=== PATIENT | female | born 1945 | race Caucasian/White ===

== ENCOUNTER 2016-12-25 19:07 | Emergency (ER) | payer OTHER ==
[2016-12-25 19:17] VITALS: BP 158/79; PULSE 68; TEMP 98; BMI 36.6
[2016-12-25] MEDS ORDERED: KETOROLAC TROMETHAMINE 30 MG/1 ML VIAL IM ONE (19:26)
[2016-12-25] MEDS ORDERED: KETOROLAC TROMETHAMINE 30 MG/1 ML VIAL ONE (19:28)
--- NOTE | 2016-12-25 19:30 | PDOC ---
History of Present Illness <Vasyl Estes - Last Filed: 12/25/16 19:27> - General History Source: Patient, Family Exam Limitations: No Limitations - History of Present Illness Initial Comments: 12/25/16 19:33 The patient is a 71 year old female presenting with her , with a significant past medical history of dysphagia and UTI, who presents to the emergency department with left knee pain onset today. She notes that she was walking down the stairs when she heard a pop. She describes the pain as ranging from mild to moderate, without radiation. She notes that ambulating exacerbates the pain. The patient was not able to walk into the ED and was brought in via a wheelchair. She denies taking any antibiotics recently. The patient denies any kind of injuries. Allergies: None Past surgical history: Heel Surgery, abdominal surgery Social history: Occasional alcohol use. No tobacco or drug use reported PMD - Dr. Lily Blas <Bertram Fallon - Last Filed: 12/25/16 19:34> - General Chief Complaint: Pain, Acute Stated Complaint: LT KNEE PAIN Time Seen by Provider: 12/25/16 19:19 Past History - Past Medical History Anemia: No Asthma: No Cancer: No Cardiac Disorders: No CVA: No COPD: No CHF: No Dementia: No Diabetes: No GI Disorders: Yes (DYSPHAGIA) Disorders: Yes (UTI) HTN: No Hypercholesterolemia: No Liver Disease: No Seizures: No Thyroid Disease: No Other medical history: TREMORS - Surgical History Abdominal Surgery: Yes Appendectomy: No Cardiac Surgery: No Cholecystectomy: No Lung Surgery: No Neurologic Surgery: No Orthopedic Surgery: Yes (HEEL SURGERY) - Psycho/Social/Smoking Cessation Hx Anxiety: No Suicidal Ideation: No Smoking History: Never smoked Have you smoked in the past 12 months: No Hx Alcohol Use: Yes (nightly) Drug/Substance Use Hx: No Substance Use Type: Alcohol Hx Substance Use Treatment: No <Vasyl Estes - Last Filed: 12/25/16 19:27> <Bertram Fallon - Last Filed: 12/25/16 19:34> - Past Medical History Allergies/Adverse Reactions: Allergies Allergy/AdvReac Type Severity Reaction Status Date / Time No Known Allergies Allergy Verified 12/25/16 19:09 Home Medications: Ambulatory Orders Aspirin [Yves Chewable] 81 mg PO DAILY 10/17/15 Pantoprazole Sodium [Protonix] 40 mg PO DAILY 10/17/15 Propranolol HCl mg PO DAILY 12/25/16 Review of Systems - Review of Systems Able to Perform ROS?: Yes Musculoskeletal: Yes: Other (Left knee pain) All Other Systems: Reviewed and Negative <Bertram Fallon - Last Filed: 12/25/16 19:34> *Physical Exam - Vital Signs Last Vital Signs Temp Pulse Resp BP Pulse Ox 98 F 68 18 158/79 98 12/25/16 19:10 12/25/16 19:10 12/25/16 19:10 12/25/16 19:10 12/25/16 19:10 - Physical Exam General Appearance: Yes: Nourished, Appropriately Dressed. No: Apparent Distress Neck: positive: Supple. negative: Tender Respiratory/Chest: negative: Respiratory Distress Cardiovascular: positive: Regular Rhythm, Regular Rate Musculoskeletal: positive: Normal Inspection. negative: Vertebral Tenderness Extremity: positive: Normal Capillary Refill, Normal Inspection, Normal Range of Motion (TENDER LCL LT KNEE. NO EDEMA OR ERYTHEMA.) Integumentary: positive: Normal Color. negative: Swelling, Ecchymosis, Bruising Neurologic: positive: Fully Oriented, Alert, Normal Mood/Affect, Normal Response , Motor Strength 5/5 <Vasyl Estes - Last Filed: 12/25/16 19:27> - Vital Signs Last Vital Signs Temp Pulse Resp BP Pulse Ox 98 F 68 18 158/79 98 12/25/16 19:10 12/25/16 19:10 12/25/16 19:10 12/25/16 19:10 12/25/16 19:10 <Bertram Fallon - Last Filed: 12/25/16 19:34> ED Treatment Course - Medications Given in the ED: ED Medications Discontinued Medications Generic Name Dose Route Start Last Admin Trade Name Freq PRN Reason Stop Dose Admin Ketorolac Tromethamine 30 mg 12/25/16 19:26 12/25/16 19:30 Toradol Injection - IM 12/25/16 19:27 30 mg ONCE ONE Administration <Bertram Fallon - Last Filed: 12/25/16 19:34> *DC/Admit/Observation/Transfer <Vasyl Estes - Last Filed: 12/25/16 19:27> - Attestations Scribe Attestion: 12/25/16 19:33 Documentation prepared by Bertram Fallon, acting as medical service technician for Vasyl Estes MD <Bertram Fallon - Last Filed: 12/25/16 19:34> Diagnosis at time of Disposition: Knee pain Qualifiers: Laterality: left Chronicity: acute Qualified Code(s): M25.562 - Pain in left knee - Discharge Dispostion Condition at time of disposition: Stable - Referrals Referrals: Lily Blas [Primary Care Provider] - Jag Way MD [Staff Physician] - 2 Days - Patient Instructions Additional Instructions: ICE TO AREA ON AND OFF ELEVATION AMBULATION WITH KNEE IMMOBILIZER IBUPROFEN 600 MG 3 TIMES A DAY FOR [address] ON WEDNESDAY RETURN IF WORSENING OR NEW SYMPTOMS
== END 2016-12-25 19:52 | disposition home or self-care (01) ==
LOC: FER 19:07
PROC: 2W3MX1Z Immobilization of Left Lower Extremity using Splint (ICD-10-PCS; principal; 2016-12-25)
PROC: 3E0233Z Introduction of Anti-inflammatory into Muscle, Percutaneous Approach (ICD-10-PCS; 2016-12-25)
DX: M25.562 Pain in left knee (principal); R13.10 Dysphagia, unspecified; Z87.440 Personal history of urinary (tract) infections
CPT/HCPCS: 29515; 96372; 99283-25

== ENCOUNTER 2017-03-11 14:52 | Inpatient (IN) | payer OTHER ==
[2017-03-11] MEDS ORDERED: SODIUM CHLORIDE 1,000 ML IV STA (15:22)
--- NOTE | 2017-03-11 15:22 | PDOC ---
History of Present Illness - General History Source: Patient, Primary Care Provider (Dr. Lily Blas) Exam Limitations: No Limitations - History of Present Illness Initial Comments: 03/11/17 15:39 The patient is a 72-year-old woman, accompanied by her daughter, with a significant past medical history of hypertension and urinary tract infection who was advised to present to the emergency department by her PMD, Dr. Lily León office to rule out possible urosepsis. As per patient, she has been feeling progressively weak and fatigue over the past 3 days with associated chills and generalized body aches. She noted yesterday that her urine was brownish in appearance and foul smelling. She also notes that her urine is warmer than usual and she experiences urinary frequency. No dysuria or urinary hesitancy, hematuria. She also notes that she has been experiencing loose watery stools (reported twice/day). No fever. No generalized weakness, chest pain, shortness of breath, cough, nausea, vomiting, diarrhea, flank pain, vaginal discharge/vaginal bleeding. Allergies: No Known Drug Allergies Past Surgical History: Heel Spur Social History: Never smoked. No EtOH and recreational drug use. Primary Care Physician: Dr. Lily Blas <Tiffanie Raman - Last Filed: 03/11/17 16:40> <Cade Donaldson - Last Filed: 03/11/17 16:54> - General Chief Complaint: Urinary Problem Stated Complaint: LAB VARIANCE (PCP SENT) Time Seen by Provider: 03/11/17 15:21 Past History <Tiffanie Raman - Last Filed: 03/11/17 16:40> - Past Medical History Anemia: No Asthma: No Cancer: No Cardiac Disorders: No CVA: No COPD: No CHF: No Dementia: No Diabetes: No GI Disorders: Yes (DYSPHAGIA) Disorders: Yes (UTI) HTN: No Hypercholesterolemia: No Liver Disease: No Seizures: No Thyroid Disease: No - Surgical History Abdominal Surgery: Yes Appendectomy: No Cardiac Surgery: No Cholecystectomy: No Lung Surgery: No Neurologic Surgery: No Orthopedic Surgery: Yes (HEEL SURGERY) - Psycho/Social/Smoking Cessation Hx Anxiety: No Suicidal Ideation: No Smoking History: Never smoked Have you smoked in the past 12 months: No Hx Alcohol Use: No Drug/Substance Use Hx: No Substance Use Type: Alcohol Hx Substance Use Treatment: No <Cade Donaldson - Last Filed: 03/11/17 16:54> - Past Medical History Allergies/Adverse Reactions: Allergies Allergy/AdvReac Type Severity Reaction Status Date / Time No Known Allergies Allergy Verified 03/11/17 15:10 Home Medications: Ambulatory Orders Calcium (Oyster Shell) [Os-Mohinder 500Mg -] 500 mg PO DAILY 03/11/17 Cholecalciferol (Vitamin D3) [D-2000] 1,000 unit PO DAILY 03/11/17 Multivitamin [Poly-Vitamin] 1 each PO DAILY 03/11/17 [place]-3S/Dha/Epa/Fish Oil/D3 [Fish Oil Gummies] 1 each PO DAILY 03/11/17 Propranolol HCl [Inderal LA] 80 mg PO DAILY 03/11/17 Psyllium [Metamucil (Sugar-Free) -] 5.85 gm PO DAILY 03/11/17 Review of Systems - Review of Systems Able to Perform ROS?: Yes Comments:: 03/11/17 15:43 CONSTITUTIONAL: Present: Chills. Generalized Weakness. Absent: fever, diaphoresis, malaise, loss of appetite HEENT: Absent: rhinorrhea, nasal congestion, throat pain, throat swelling, difficulty swallowing, mouth swelling, ear pain, eye pain, visual Changes CARDIOVASCULAR: Absent: chest pain, syncope, palpitations, irregular heart rate , lightheadedness, peripheral edema RESPIRATORY: Absent: cough, shortness of breath, dyspnea with exertion, orthopnea, wheezing, stridor, hemoptysis GASTROINTESTINAL:Absent: abdominal pain, abdominal distension, nausea, vomiting , diarrhea, constipation, melena, hematochezia GENITOURINARY: Present: Urinary frequency. Foul smelling urine. Absent: dysuria , urgency, hesitancy, hematuria, flank pain, genital pain MUSCULOSKELETAL: Absent: myalgia, arthralgia, joint swelling SKIN: Absent: rash, itching, pallor HEMATOLOGIC/IMMUNOLOGIC: Absent: easy bleeding, easy bruising, lymphadenopathy, frequent infections ENDOCRINE:Absent: unexplained weight gain, unexplained weight loss, heat intolerance, cold intolerance NEUROLOGIC: Absent: headache, focal weakness or paresthesias, dizziness, unsteady gait, seizure, mental status changes, bladder or bowel incontinence PSYCHIATRIC: Absent: anxiety, depression, suicidal or homicidal ideation, hallucinations <Tiffanie Raman - Last Filed: 03/11/17 16:40> *Physical Exam - Vital Signs Last Vital Signs Temp Pulse Resp BP Pulse Ox 98.3 F 85 22 106/65 97 03/11/17 15:04 03/11/17 15:04 03/11/17 15:04 03/11/17 15:04 03/11/17 15:04 - Physical Exam Comments: 03/11/17 15:46 GENERAL: Well developed, well nourished. Awake and alert. No acute distress. HEENT: Normocephalic, atraumatic. PERRLA, EOMI. No conjunctival pallor. Sclera are non-icteric. Moist mucous membranes. Oropharynx is clear. NECK: Supple. Full ROM. No JVD. CARDIOVASCULAR: Regular rate and rhythm. No murmurs, rubs, or gallops. PULMONARY: No evidence of respiratory distress. Lungs clear to auscultation bilaterally. No wheezing, rales or rhonchi. ABDOMINAL: Soft. Non-tender. Non-distended. No rebound or guarding. No organomegaly. Normoactive bowel sounds. MUSCULOSKELETAL: Normal range of motion at all joints. No bony deformities or tenderness. No CVA tenderness. EXTREMITIES: No cyanosis. No clubbing. No edema. No calf tenderness. SKIN: Warm and dry. Normal capillary refill. No rashes. No jaundice. NEUROLOGICAL: Alert, awake, appropriate. Cranial nerves 2-12 intact. No deficits to light touch and temperature in face, upper extremities and lower extremities. No motor deficits in the in face, upper extremities and lower extremities. Normoreflexic in the upper and lower extremities. Normal speech. PSYCHIATRIC: Cooperative. Good eye contact. Appropriate mood and affect. <Tiffanie Raman - Last Filed: 03/11/17 16:40> - Vital Signs Last Vital Signs Temp Pulse Resp BP Pulse Ox 98.3 F 85 22 106/65 97 03/11/17 15:04 03/11/17 15:04 03/11/17 15:04 03/11/17 15:04 03/11/17 15:04 <Cade Donaldson - Last Filed: 03/11/17 16:54> Heart Score/ECG Review - ECG Intrepretation Comment:: 03/11/17 16:18 Normal sinus rhythm at 78, normal axis, normal intervals, flat T wave in lead AVL, V2-V3, no ST changes <Cade Donaldson - Last Filed: 03/11/17 16:54> ED Treatment Course - LABORATORY CBC & Chemistry Diagram: 03/11/17 15:49 03/11/17 15:49 - RADIOLOGY Radiograph Interpretation: 03/11/17 16:19 EXAM: RAD/CHEST X-RAY PORTABLE Interpreted by Dr. Jatin Jones IMPRESSION: Portable chest x-ray semierect. Since prior chest x-ray dated 2016, the cardiac silhouette remains borderline in size with unfolding of the aortic arch. The lung is clear. Mediastinum and visualized osseous structures appear intact <Tiffanie Raman - Last Filed: 03/11/17 16:40> - LABORATORY CBC & Chemistry Diagram: 03/11/17 15:49 03/11/17 15:49 <Cade Donaldson - Last Filed: 03/11/17 16:54> Medical Decision Making - Medical Decision Making 03/11/17 16:[address] Lily Blas. Immediate response. Case was discussed. <Tiffanie Raman - Last Filed: 03/11/17 16:40> - Medical Decision Making 03/11/17 15:30 The patient is well-appearing and in no acute distress Vitals noted She has 1 SIRS criteria, tachypnea According to her primary care physician, her heart rate was 110 in her office and she was having shaking chills Furthermore, her systolic blood pressure was 100, lower than her baseline of 150 She does have potential symptoms/signs of UTI Will initiate sepsis order set 03/11/17 15:55 Rectal temperature of 101.8 noted She has 2 SIRS criteria and clinical evidence of infection I suspect UTI/Pyelo She meets diagnostic criteria for sepsis Will administer Ceftriaxone 1gm and 1 L of NS Labs and UA pending 03/11/17 15:57 CXR emergency department interpretation: no acute cardiopulmonary disease 03/11/17 16:48 UA noted with evidence of UTI Lactic acid noted, within normal limits Chemistries, CBC Lab is aware that we are awaiting results 03/11/17 16:53 Chemistries noted CBC pending Clinical impression: Pyelonephritis Sepsis Case discussed with admitting physician who has assumed care and will follow all pending studies. <Cade Donaldson - Last Filed: 03/11/17 16:54> *DC/Admit/Observation/Transfer - Attestations Scribe Attestion: 03/11/17 15:47 Documentation prepared by Tiffanie Raman, acting as medical office supervisor for Cade Donaldson MD. <Tiffanie Raman - Last Filed: 03/11/17 16:40> - Discharge Dispostion Admit: Yes <Cade Donaldson - Last Filed: 03/11/17 16:54> Diagnosis at time of Disposition: Pyelonephritis, Sepsis - Referrals
[2017-03-11] MEDS ORDERED: ACETAMINOPHEN 325 MG TABLET (FP) PO ONE (15:56)
[2017-03-11] MEDS ORDERED: ACETAMINOPHEN 325 MG TABLET (FP) ONE (15:58)
[2017-03-11 16:45] LABS: MCH 30.7 pg (25.7-33.7); MEAN PLT VOLUME 10.5 fl (7.5-11.1); PLATELET COUNT 196 K/MM3 (134-434); RDW 12.7 % (11.6-15.6); WHITE BLOOD COUNT 23.5 K/mm3 (4.0-10.0)
[2017-03-11 16:46] LABS: URINE APPEARANCE SLCLOUDY; URINE BILIRUBIN NEGATIVE (NEGATIVE); URINE BLOOD NEGATIVE (NEGATIVE); URINE COLOR DKYELLOW; URINE GLUCOSE (UA) NEGATIVE (NEGATIVE); URINE KETONE TRACE (NEGATIVE); URINE LEUK ESTERASE 3+ (NEGATIVE); URINE NITRITE NEGATIVE (NEGATIVE); URINE PROTEIN 2+ (NEGATIVE); URINE UROBILINOGEN NEGATIVE E.U./dl (0.2-1.0)
[2017-03-11 16:47] LABS: ALBUMIN 3.4 g/dl (3.4-5.0); ANION GAP 13 (8-16); BILIRUBIN,TOTAL 1.2 mg/dL (0.2-1.0); CALCIUM 8.9 mg/dL (8.5-10.1); CO2 23 mmol/L (21-32); COCKROFT - GAULT 87.4565; CREATININE 0.9 mg/dL (0.55-1.02); GLUCOSE,RANDOM 116 mg/dL (74-106); SGOT/AST 22 U/L (15-37); SGPT/ALT 20 U/L (12-78)
[2017-03-11 16:51] LABS: ALK PHOS 91 U/L (45-117); TOT PROT 6.4 g/dl (6.4-8.2); TROPONIN I < 0.02 ng/ml (0.00-0.05)
[2017-03-11 17:15] LABS: INR 1.02 (0.82-1.09); PROTHROMBIN TIME (PATIENT) 11.2 SEC (9.98-11.88)
[2017-03-11 17:18] LABS: ACTIVATED PTT 22.8 SECONDS (26.9-34.4)
[2017-03-11 17:38] LABS: URINE BACTERIA RARE /hpf (NONE SEEN); URINE MUCUS RARE; URINE RBC 13 /hpf (0-3); URINE WBC 235 /hpf (3-5)
[2017-03-11 18:00] VITALS: BMI 39.1
[2017-03-11] MEDS ORDERED: CEFTRIAXONE 1 GM in DEXTROSE 5%-WATER - 50 ML IVPB ONE (19:08)
[2017-03-11] MEDS ORDERED: PT OWN MED DRAWER 7, Y5N ONE (19:54)
[2017-03-11] MEDS ORDERED: CEFTRIAXONE 50 ML IVPB ONE (20:00)
[2017-03-11] MEDS: SODIUM CHLORIDE 1,000 ML IV SCH (20:27)
[2017-03-11 20:42] LABS: PLATELET ESTIMATE ADEQUATE (NORMAL)
[2017-03-11] MEDS: HEPARIN NA (PORCINE) 5,000 UNITS/ML 1ML VIAL SQ SCH (22:06)
[2017-03-12] MEDS: ACETAMINOPHEN 325 MG TABLET (FP) PO PRN ×2 (06:20→18:57)
[2017-03-12 07:59] LABS: BASOPHIL 0.3 % (0-2.0); EOSINOPHIL 0.2 % (0-4.5); MCH 31.4 pg (25.7-33.7); MCHC 33.4 g/dl (32.0-36.0); MEAN PLT VOLUME 9.7 fl (7.5-11.1); NEUTROPHILS 82.9 % (42.8-82.8); PLATELET COUNT 178 K/MM3 (134-434); RDW 12.8 % (11.6-15.6); WHITE BLOOD COUNT 17.2 K/mm3 (4.0-10.0)
[2017-03-12 08:24] LABS: ALBUMIN 2.7 g/dl (3.4-5.0); ANION GAP 8 (8-16); CO2 25 mmol/L (21-32); GLUCOSE,RANDOM 105 mg/dL (74-106)
[2017-03-12 08:29] LABS: ALK PHOS 93 U/L (45-117); BILIRUBIN,TOTAL 0.6 mg/dL (0.2-1.0); CREATININE 0.9 mg/dL (0.55-1.02); SGOT/AST 23 U/L (15-37); SGPT/ALT 22 U/L (12-78); TOT PROT 5.5 g/dl (6.4-8.2)
--- NOTE | 2017-03-12 09:27 | PN ---
Progress Note (short form) - Note Progress Note: paitent with diarrhea. Fevers. BP better this morning. Called last night at time consult was delivered to expedite CT scan around 10pm. Patient is no at CT (9am). Will leave further note after CT reading is available
--- NOTE | 2017-03-12 09:48 | EKG ---
Test Reason : Blood Pressure : / mmHG Vent. Rate : 079 BPM Atrial Rate : 079 BPM P-R Int : 126 ms QRS Dur : 072 ms QT Int : 382 ms P-R-T Axes : 022 003 033 degrees QTc Int : 438 ms POOR DATA QUALITY, INTERPRETATION MAY BE ADVERSELY AFFECTED NORMAL SINUS RHYTHM NONSPECIFIC ST AND T WAVE ABNORMALITY ABNORMAL ECG NO PREVIOUS ECGS AVAILABLE Confirmed by AARON JOSEPH MD ([id number]) on 03/12/2017 9:48:13 AM Referred By: Confirmed By:AARON JOSEPH MD
[2017-03-12] MEDS ORDERED: CEFTRIAXONE 50 ML IVPB SCH (10:00)
[2017-03-12] MEDS: SODIUM CHLORIDE 1,000 ML IV SCH ×2 (10:27→17:38)
[2017-03-12] MEDS: HEPARIN NA (PORCINE) 5,000 UNITS/ML 1ML VIAL SQ SCH (10:27)
--- NOTE | 2017-03-12 11:54 | HP ---
Admitting History and Physical - Primary Care Physician PCP: Lily Blas S - Admission Chief Complaint: dysuria, chills, fatigue History of Present Illness: The patient is a 72-year-old woman, accompanied by her daughter, with a significant past medical history of hypertension and urinary tract infection who was advised to present to the emergency department after she w/i my office with UTI but should rule out possible urosepsis. As per patient, she has been feeling progressively weak and fatigue over the past 3 days with associated chills and generalized body aches. She noted yesterday that her urine was brownish in appearance and foul smelling. She also notes that her urine is warmer than usual and she experiences urinary frequency. No dysuria or urinary hesitancy, hematuria. She also notes that she has been experiencing loose watery stools (reported twice/day). No fever. No generalized weakness, chest pain, shortness of breath, cough, nausea, vomiting, diarrhea, flank pain, vaginal discharge/vaginal bleeding. History Source: Patient, Medical Record Limitations to Obtaining History: No Limitations - Past Medical History Cardiovascular: Yes: HTN - Smoking History Smoking history: Never smoked Have you smoked in the past 12 months: No - Alcohol/Substance Use Hx Alcohol Use: No History of Substance Use: reports: None - Social History Usual Living Arrangement: Yes: With Spouse History of Recent Travel: No Home Medications - Allergies Allergies/Adverse Reactions: Allergies Allergy/AdvReac Type Severity Reaction Status Date / Time No Known Allergies Allergy Verified 03/11/17 15:10 - Home Medications Home Medications: Ambulatory Orders Calcium (Oyster Shell) [Os-Mohinder 500Mg -] 500 mg PO DAILY 03/11/17 Cholecalciferol (Vitamin D3) [D-2000] 1,000 unit PO DAILY 03/11/17 Multivitamin [Poly-Vitamin] 1 each PO DAILY 03/11/17 [place]-3S/Dha/Epa/Fish Oil/D3 [Fish Oil Gummies] 1 each PO DAILY 03/11/17 Propranolol HCl [Inderal LA] 80 mg PO DAILY 03/11/17 Psyllium [Metamucil (Sugar-Free) -] 5.85 gm PO DAILY 03/11/17 Family Disease History - Family Disease History Family History: Unremarkable Review of Systems - Review of Systems Constitutional: reports: Chills, Fever, Weakness Eyes: denies: Blurred Vision, Double Vision HENT: denies: Difficult Swallowing, Ear Pain Neck: denies: Stiffness, Tenderness Cardiovascular: denies: Chest Pain, Palpitations, Shortness of Breath Respiratory: denies: Cough, PND, SOB Gastrointestinal: denies: Abdominal Pain, Bloating, Constipation, Diarrhea, Vomiting Genitourinary: reports: Burning, Dysuria, Flank Pain. denies: Hematuria Musculoskeletal: denies: Back Pain, Extremity Pain, Joint Swelling Neurological: denies: Change in LOC, Change in Speech, Confusion, Seizure, Unsteady Gait Endocrine: denies: Unexplained Weight Gain, Unexplained Weight Loss Hematology/Lymphatic: denies: Easily Bruised, Excessive Bleeding, Swollen Glands Psychiatric: denies: Altered Sleep Pattern, Anxiety, Depression, Suicidal Physical Examination Vital Signs: Vital Signs Temperature 98.0 F 03/12/17 08:47 Pulse Rate 75 03/12/17 08:47 Respiratory Rate 18 03/12/17 08:47 Blood Pressure 102/52 03/12/17 08:47 O2 Sat by Pulse Oximetry (%) 95 03/11/17 21:00 Constitutional: Yes: No Distress, Calm Eyes: Yes: Conjunctiva Clear HENT: Yes: Atraumatic Neck: Yes: Supple Cardiovascular: Yes: Regular Rate and Rhythm Respiratory: Yes: CTA Bilaterally Gastrointestinal: Yes: Soft. No: Distention, Tenderness Renal/: No: CVA Tenderness - Left, CVA Tenderness - Right Musculoskeletal: No: Joint Stiffness, Joint Swelling Extremities: No: Cold, Cool Edema: No Peripheral Pulses WNL: Yes Integumentary: No: Rash, Venous Stasis Changes Neurological: Yes: WNL, Alert, Oriented ...Motor Strength: WNL Psychiatric: Yes: WNL, Alert, Oriented. No: Agitated, Suicidal Ideation Labs: CBC, BMP 03/12/17 06:30 03/12/17 06:30 Imaging - Results Chest X-ray: Report Reviewed Other: Report Reviewed Assessment/Plan The patient is a 72-year-old woman, accompanied by her daughter, with a significant past medical history of hypertension and urinary tract infection who was advised to present to the emergency department to rule out possible urosepsis. As per patient, she has been feeling progressively weak and fatigue over the past 3 days with associated chills and generalized body aches. She noted yesterday that her urine was brownish in appearance and foul smelling. She also notes that her urine is warmer than usual and she experiences urinary frequency. borderline low BP; high WBC; tachyacrdia and tachypnea; fever admit with dx UTI and sepsis IVF resuscitation and ID eval IV ATB check abdomen CT check cultures U, blood f/u labs' DVT falls PFXprognosis guarded d/w pt and family T time 70 min
--- NOTE | 2017-03-12 12:01 | PN ---
Progress Note (short form) - Note Progress Note: ID Consult dictated Gram Negative bacteremia/ sepsis secondary to UTI Acute pyelonephritis Nephrolithiasis Obstructive uropathy secondary to stone Leukocytosis pending c/s empiric cefepime 2gm IVPB q8h IVF hydration Urology follow up
--- NOTE | 2017-03-12 12:05 | PN ---
Progress Note (short form) - Note Progress Note: CT reveals a 9mm right obstructing stone. Stat nephrosotomy tube ordered. Spoke with radiology department and PMD
[2017-03-12] MEDS ORDERED: CEFEPIME HCL 2 GM VIAL (RESTRICTED TO ID) IVPB SCH (12:15)
[2017-03-12] MEDS ORDERED: CEFEPIME 2 GM in DEXTROSE 5%-WATER - 100 ML IVPB SCH (13:30)
[2017-03-12] MEDS ORDERED: MIDAZOLAM HCL 2 MG/2 ML SINGLE DOSE VIAL IVPUSH ONE ×2 (15:25→15:44)
--- NOTE | 2017-03-12 15:28 | CONS ---
DATE OF CONSULTATION: DATE OF DICTATION: 03/12/2017 HISTORY OF PRESENT ILLNESS: The patient is a 72-year-old female evaluated for sepsis. She presents with a 3-day history of worsening generalized weakness, fatigue, body aches, and chills. She also reported that her urine was darker than normal and malodorous. She presented to her primary care physician where she was noted to be tachycardic and have rigors. In addition, she was hypotensive with a systolic blood pressure of 100. She was referred to the emergency room. Cultures were obtained, and she was empirically treated with ceftriaxone. Blood cultures are now positive for gram negative rods. Patient denies any dysuria or hematuria. No suprapubic or flank pain. She has had loose bowel movements. A CT scan of the abdomen and pelvis was performed today, which shows a 9-mm calcification of the right UP junction with mild degree of hydronephrosis, perinephric stranding. PAST MEDICAL HISTORY: Positive for hypertension, history of urinary tract infection, remote history of nephrolithiasis. MEDICATIONS: Include Tylenol, ceftriaxone, heparin. SOCIAL HISTORY: She resides in the community. She is a nonsmoker/nondrinker. SYSTEMS REVIEW: Neurologic: No loss of consciousness, seizure activity, or focal weakness. Cardiac: Negative for chest pain or palpitations. Respiratory: Negative for cough or sputum production. Gastrointestinal: Negative for vomiting. Positive for diarrhea. Genitourinary: As per HPI. LABORATORY DATA: White count on admission 23,000, hematocrit 33.5, platelet count 178. BUN 16, creatinine 0.9. Urinalysis 235 white cells, 13 red cells. Blood cultures gram-negative rods. Urine culture pending. PHYSICAL EXAMINATION: General: She is awake and alert. She is not acutely toxic-appearing, in no acute distress. Vital signs: Maximum temperature 101.8, blood pressure 102/52, pulse 75 and regular, respirations 18 per minute. HEENT: Sclerae anicteric. Heart: Heart sounds S1, S2. Lungs: Clear. Abdomen: Soft, obese. No tenderness elicited. No CVA or suprapubic tenderness. Extremities: Positive for edema. IMPRESSION: 1. Gram-negative bacteremia/sepsis secondary to urinary tract infection. 2. Urinary tract infection. 3. Acute pyelonephritis. 4. Nephrolithiasis. 5. Obstructive uropathy secondary to stone. 6. Leukocytosis. Await identification of blood islet, empiric antibiotic coverage with cefepime 2 g IV piggyback every 8 hours, IV fluid hydration, urology followup. Will follow. Thank you for the kind referral. AARON CHEEMA M.D. DENAE/[id number]
[2017-03-12] MEDS ORDERED: SODIUM CHLORIDE 500 ML IV ONE (16:45)
[2017-03-12] MEDS ORDERED: LEVOFLOXACIN 500 MG IVPB 100 ML IVPB ONE (16:45)
[2017-03-12] MEDS ORDERED: PT OWN MED DRAWER 7, Y5N ONE (17:50)
[2017-03-12] MEDS ORDERED: CEFEPIME HCL IVPB SCH (18:00)
[2017-03-12] MEDS ORDERED: D5W IVPB SCH (18:00)
[2017-03-12] MEDS ORDERED: CEFEPIME 100 ML IVPB SCH (18:00)
[2017-03-12] MEDS: oxyCODONE HCL 5 MG TABLET PO PRN (18:54)
[2017-03-13] MEDS ORDERED: PT OWN MED DRAWER 7, Y5N ONE ×4 (02:43→18:09)
[2017-03-13] MEDS: CEFEPIME 1 GM/100 ML BAG PRE-DOCKED IVPB SCH ×2 (03:01→03:30)
[2017-03-13] MEDS: ACETAMINOPHEN 325 MG TABLET (FP) PO PRN ×3 (03:27→21:14)
[2017-03-13] MEDS: oxyCODONE HCL 5 MG TABLET PO PRN ×4 (03:28→21:13)
[2017-03-13] MEDS: CEFEPIME 2 GM/100 ML BAG PRE-DOCKED IVPB SCH ×3 (03:45→18:10)
[2017-03-13] MEDS: SODIUM CHLORIDE 1,000 ML IV SCH (09:33)
--- NOTE | 2017-03-13 10:53 | PN ---
Progress Note (short form) - Note Progress Note: UrologyCoverage: Pt feeling better s/p nephrostomy tube placement. AVSS afebreile. Abdomen is soft and not tender. WBC count down.\ Blood cultures positive : identification pending. Labs CBCD WBC 17.2 K/mm3 (4.0-10.0) H 03/12/17 06:30 RBC 3.56 M/mm3 (3.60-5.2) L 03/12/17 06:30 Hgb 11.2 GM/dL (10.7-15.3) 03/12/17 06:30 Hct 33.5 % (32.4-45.2) 03/12/17 06:30 MCV 94.0 fl (80-96) 03/12/17 06:30 MCHC 33.4 g/dl (32.0-36.0) 03/12/17 06:30 RDW 12.8 % (11.6-15.6) 03/12/17 06:30 Plt Count 178 K/MM3 (134-434) 03/12/17 06:30 MPV 9.7 fl (7.5-11.1) 03/12/17 06:30 CMP Sodium 137 mmol/L (136-145) 03/12/17 06:30 Potassium 4.5 mmol/L (3.5-5.1) 03/12/17 06:30 Chloride 104 mmol/L (98-107) 03/12/17 06:30 Carbon Dioxide 25 mmol/L (21-32) 03/12/17 06:30 Anion Gap 8 (8-16) 03/12/17 06:30 BUN 16 mg/dL (7-18) 03/12/17 06:30 Creatinine 0.9 mg/dL (0.55-1.02) 03/12/17 06:30 Creat Clearance w eGFR > 60 (>60) 03/12/17 06:30 Calcium 8.0 mg/dL (8.5-10.1) L 03/12/17 06:30 Total Bilirubin 0.6 mg/dL (0.2-1.0) D 03/12/17 06:30 AST 23 U/L (15-37) 03/12/17 06:30 ALT 22 U/L (12-78) 03/12/17 06:30 Alkaline Phosphatase 93 U/L (45-117) 03/12/17 06:30 Total Protein 5.5 g/dl (6.4-8.2) L 03/12/17 06:30 Albumin 2.7 g/dl (3.4-5.0) L D 03/12/17 06:30 Continue IV antibiotics. Right UPJ stone with hydronephrosis drained with nephrotosmy tube.
--- NOTE | 2017-03-13 11:28 | PN ---
Progress Note, Physician Chief Complaint: in bed afebrile NAD; consults appreciated and d/w pt some R flank pain s/p nephrostomy tube; urine in bag still cloudy had BM slept OK - Current Medication List Current Medications: Active Medications Acetaminophen (Tylenol -) 650 mg PO Q6H PRN PRN Reason: FEVER OR PAIN Last Admin: 03/12/17 06:20 Dose: 650 mg Acetaminophen (Tylenol -) 325 mg PO Q4H PRN PRN Reason: FEVER OR PAIN Last Admin: 03/13/17 03:27 Dose: 325 mg Acetaminophen (Tylenol -) 650 mg PO Q4H PRN PRN Reason: FEVER OR PAIN Cefepime HCl (Maxipime 2gm Ivpb (Pre-Docked)) 2 gm IVPB Q8H-IV JOSE Last Admin: 03/13/17 09:32 Dose: 2 gm Sodium Chloride (Normal Saline -) 1,000 mls @ 100 mls/hr IV ASDIR JOSE Last Admin: 03/13/17 09:33 Dose: 100 mls/hr Sodium Chloride (Normal Saline -) 500 mls @ 21 mls/hr IV ONCE ONE Stop: 03/13/17 16:33 Last Admin: 03/12/17 17:38 Dose: Not Given Oxycodone HCl (Roxicodone -) 5 mg PO Q4H PRN Last Admin: 03/13/17 03:28 Dose: 5 mg Oxycodone HCl (Roxicodone -) 10 mg PO Q4H PRN Last Admin: 03/13/17 09:36 Dose: 10 mg - Objective Vital Signs: Vital Signs Temperature 98.2 F 03/13/17 09:43 Pulse Rate 80 03/13/17 09:43 Respiratory Rate 20 03/13/17 09:43 Blood Pressure 118/61 03/13/17 09:43 O2 Sat by Pulse Oximetry (%) 94 L 03/12/17 21:00 Constitutional: Yes: No Distress, Calm Eyes: Yes: Conjunctiva Clear HENT: Yes: Atraumatic Neck: Yes: Supple Cardiovascular: Yes: Regular Rate and Rhythm Respiratory: Yes: CTA Bilaterally Gastrointestinal: Yes: Soft. No: Distention, Tenderness Genitourinary: Yes: CVA Tenderness - Left. No: CVA Tenderness - Right, Hematuria Musculoskeletal: No: Joint Stiffness, Joint Swelling Extremities: No: Cold, Cool Edema: No Integumentary: No: Rash, Venous Stasis Changes Neurological: Yes: WNL, Alert, Oriented ...Motor Strength: WNL Psychiatric: Yes: WNL, Alert, Oriented. No: Agitated, Suicidal Ideation Labs: CBC, BMP 03/12/17 06:30 03/12/17 06:30 INR, PTT INR 1.02 (0.82-1.09) 03/11/17 15:49 - ....Imaging Other: Report Reviewed Assessment/Plan The patient is a 72-year-old woman, accompanied by her daughter, with a significant past medical history of hypertension and urinary tract infection who was advised to present to the emergency department to rule out possible urosepsis. As per patient, she has been feeling progressively weak and fatigue over the past 3 days with associated chills and generalized body aches. She noted yesterday that her urine was brownish in appearance and foul smelling. She also notes that her urine is warmer than usual and she experiences urinary frequency. borderline low BP; high WBC; tachyacrdia and tachypnea; fever admitted with dx UTI and sepsis IVF resuscitation; BP better now, if stable will DC IVF in am and ID f/u, d/w dr Watkins IV ATB check abdomen CT f/u cultures Urine & blood f/u labs' DVT falls PFXprognosis guarded d/w pt and family T time 40 min
--- NOTE | 2017-03-13 13:51 | PN ---
Progress Note, Physician History of Present Illness: S/P R PCN C/O discomfort at PCN site No dysuria/ hematuria Temps down Blood, urine c/s pending - Current Medication List Current Medications: Active Medications Acetaminophen (Tylenol -) 650 mg PO Q6H PRN PRN Reason: FEVER OR PAIN Last Admin: 03/12/17 06:20 Dose: 650 mg Acetaminophen (Tylenol -) 325 mg PO Q4H PRN PRN Reason: FEVER OR PAIN Last Admin: 03/13/17 03:27 Dose: 325 mg Acetaminophen (Tylenol -) 650 mg PO Q4H PRN PRN Reason: FEVER OR PAIN Cefepime HCl (Maxipime 2gm Ivpb (Pre-Docked)) 2 gm IVPB Q8H-IV JOSE Last Admin: 03/13/17 09:32 Dose: 2 gm Sodium Chloride (Normal Saline -) 1,000 mls @ 100 mls/hr IV ASDIR JOSE Last Admin: 03/13/17 09:33 Dose: 100 mls/hr Sodium Chloride (Normal Saline -) 500 mls @ 21 mls/hr IV ONCE ONE Stop: 03/13/17 16:33 Last Admin: 03/12/17 17:38 Dose: Not Given Oxycodone HCl (Roxicodone -) 5 mg PO Q4H PRN Last Admin: 03/13/17 03:28 Dose: 5 mg Oxycodone HCl (Roxicodone -) 10 mg PO Q4H PRN Last Admin: 03/13/17 09:36 Dose: 10 mg - Objective Vital Signs: Vital Signs Temperature 97.6 F 03/13/17 13:39 Pulse Rate 74 03/13/17 13:39 Respiratory Rate 21 03/13/17 13:39 Blood Pressure 118/61 03/13/17 09:43 O2 Sat by Pulse Oximetry (%) 94 L 03/12/17 21:00 Constitutional: Yes: No Distress, Obese Cardiovascular: Yes: Regular Rate and Rhythm, S1, S2 Respiratory: Yes: CTA Bilaterally Gastrointestinal: Yes: Normal Bowel Sounds, Soft, Abdomen, Obese, Other (tea- colored urine in PCN bag). No: Tenderness Edema: No Labs: CBC, BMP 03/12/17 06:30 03/12/17 06:30 INR, PTT INR 1.02 (0.82-1.09) 03/11/17 15:49 Assessment/Plan Gram Negative bacteremia/ sepsis secondary to UTI Nephrolithiasis/ obstructive uropathy s/p PCN Pyelonephritis Fever/ leukocytosis Await cultures Continue empiric cefepime
[2017-03-14] MEDS ORDERED: PT OWN MED DRAWER 7, Y5N ONE ×3 (01:35→09:46)
[2017-03-14] MEDS: CEFEPIME 2 GM/100 ML BAG PRE-DOCKED IVPB SCH ×2 (01:41→09:50)
[2017-03-14] MEDS: SODIUM CHLORIDE 1,000 ML IV SCH ×2 (06:10→13:27)
[2017-03-14 08:53] LABS: BASOPHIL 0.6 % (0-2.0); MCH 32.1 pg (25.7-33.7); MCHC 34.4 g/dl (32.0-36.0); MEAN CELL VOLUME 93.1 fl (80-96); MEAN PLT VOLUME 9.2 fl (7.5-11.1); NEUTROPHILS 67.9 % (42.8-82.8); PLATELET COUNT 196 K/MM3 (134-434); RDW 12.8 % (11.6-15.6); WHITE BLOOD COUNT 7.2 K/mm3 (4.0-10.0)
[2017-03-14] MEDS: oxyCODONE HCL 5 MG TABLET PO PRN (09:00)
[2017-03-14] MEDS: ACETAMINOPHEN 325 MG TABLET (FP) PO PRN (09:01)
[2017-03-14 09:05] LABS: ALBUMIN 2.4 g/dl (3.4-5.0); ANION GAP 8 (8-16); CALCIUM 7.8 mg/dL (8.5-10.1); CO2 23 mmol/L (21-32); COCKROFT - GAULT 101.745; CREATININE 0.8 mg/dL (0.55-1.02); GLUCOSE,RANDOM 129 mg/dL (74-106); SGOT/AST 21 U/L (15-37); SGPT/ALT 27 U/L (12-78)
[2017-03-14 09:06] LABS: ALK PHOS 107 U/L (45-117); BILIRUBIN,TOTAL 0.4 mg/dL (0.2-1.0); TOT PROT 5.4 g/dl (6.4-8.2)
--- NOTE | 2017-03-14 12:52 | PN ---
Progress Note, Physician Chief Complaint: OOB to chair; daughter at bedside looks better & feels better urine less cloudy - Current Medication List Current Medications: Active Medications Acetaminophen (Tylenol -) 650 mg PO Q6H PRN PRN Reason: FEVER OR PAIN Last Admin: 03/13/17 21:14 Dose: 650 mg Acetaminophen (Tylenol -) 325 mg PO Q4H PRN PRN Reason: FEVER OR PAIN Last Admin: 03/14/17 09:01 Dose: 325 mg Acetaminophen (Tylenol -) 650 mg PO Q4H PRN PRN Reason: FEVER OR PAIN Cefepime HCl (Maxipime 2gm Ivpb (Pre-Docked)) 2 gm IVPB Q8H-IV JOSE Last Admin: 03/14/17 09:50 Dose: 2 gm Sodium Chloride (Normal Saline -) 1,000 mls @ 100 mls/hr IV ASDIR JOSE Last Admin: 03/14/17 06:10 Dose: 100 mls/hr Oxycodone HCl (Roxicodone -) 5 mg PO Q4H PRN Last Admin: 03/14/17 09:00 Dose: 5 mg - Objective Vital Signs: Vital Signs Temperature 98.1 F 03/14/17 08:16 Pulse Rate 75 03/14/17 08:16 Respiratory Rate 18 03/14/17 08:16 Blood Pressure 147/83 03/14/17 08:16 O2 Sat by Pulse Oximetry (%) 96 03/14/17 09:00 Constitutional: Yes: No Distress Eyes: Yes: Conjunctiva Clear HENT: Yes: Atraumatic Neck: Yes: Supple Cardiovascular: Yes: Regular Rate and Rhythm Respiratory: Yes: CTA Bilaterally Gastrointestinal: Yes: Soft. No: Distention, Tenderness Genitourinary: No: Hematuria Musculoskeletal: No: Joint Stiffness, Joint Swelling Extremities: No: Calf Tenderness, Cold, Cool, Cyanosis Edema: No Integumentary: No: Rash, Venous Stasis Changes Neurological: Yes: WNL, Alert, Oriented ...Motor Strength: WNL Psychiatric: Yes: WNL, Alert, Oriented. No: Agitated Labs: CBC, BMP 03/14/17 07:30 03/14/17 07:30 INR, PTT INR 1.02 (0.82-1.09) 03/11/17 15:49 - ....Imaging Other: Report Reviewed Assessment/Plan The patient is a 72-year-old woman, accompanied by her daughter, with a significant past medical history of hypertension and urinary tract infection who was advised to present to the emergency department to rule out possible urosepsis. As per patient, she has been feeling progressively weak and fatigue over the past 3 days with associated chills and generalized body aches. She noted yesterday that her urine was brownish in appearance and foul smelling. She also notes that her urine is warmer than usual and she experiences urinary frequency. borderline low BP; high WBC; tachyacrdia and tachypnea; fever admitted with dx UTI and sepsis and renal stone / hydronephrosis IVF resuscitation; BP better now, will DC IVF today and ID f/u, d/w dr Watkins IV ATB noted abdomen CT f/u cultures Urine & blood f/u labs' DVT falls PFXprognosis guarded d/w pt and family and staff
--- NOTE | 2017-03-14 13:15 | PN ---
Progress Note, Physician History of Present Illness: OOB in chair No c/o flank pain No fever/ chills Temps down WBC WNL - Current Medication List Current Medications: Active Medications Acetaminophen (Tylenol -) 650 mg PO Q6H PRN PRN Reason: FEVER OR PAIN Last Admin: 03/13/17 21:14 Dose: 650 mg Acetaminophen (Tylenol -) 325 mg PO Q4H PRN PRN Reason: FEVER OR PAIN Last Admin: 03/14/17 09:01 Dose: 325 mg Acetaminophen (Tylenol -) 650 mg PO Q4H PRN PRN Reason: FEVER OR PAIN Cefepime HCl (Maxipime 2gm Ivpb (Pre-Docked)) 2 gm IVPB Q8H-IV JOSE Last Admin: 03/14/17 09:50 Dose: 2 gm Sodium Chloride (Normal Saline -) 1,000 mls @ 100 mls/hr IV ASDIR JOSE Last Admin: 03/14/17 06:10 Dose: 100 mls/hr Oxycodone HCl (Roxicodone -) 5 mg PO Q4H PRN Last Admin: 03/14/17 09:00 Dose: 5 mg - Objective Vital Signs: Vital Signs Temperature 98.1 F 03/14/17 08:16 Pulse Rate 75 03/14/17 08:16 Respiratory Rate 18 03/14/17 08:16 Blood Pressure 147/83 03/14/17 08:16 O2 Sat by Pulse Oximetry (%) 96 03/14/17 09:00 Constitutional: Yes: No Distress Eyes: Yes: Conjunctiva Clear Cardiovascular: Yes: Regular Rate and Rhythm, S1, S2 Respiratory: Yes: CTA Bilaterally Gastrointestinal: Yes: Normal Bowel Sounds, Soft. No: Tenderness Genitourinary: Yes: Other (PCN draining tea-colored urine). No: CVA Tenderness - Left, CVA Tenderness - Right Labs: CBC, BMP 03/14/17 07:30 03/14/17 07:30 INR, PTT INR 1.02 (0.82-1.09) 03/11/17 15:49 Assessment/Plan Gram Negative bacteremia/ sepsis secondary to UTI- E coli Nephrolithiasis/ obstructive uropathy s/p PCN Pyelonephritis Fever/ leukocytosis Substitute cefazolin 1gm IVPB q8h Mgt of stone per /IR
[2017-03-14] MEDS: CEFAZOLIN (PRE-DOCKED) 50 ML IVPB SCH (17:11)
[2017-03-15] MEDS: CEFAZOLIN (PRE-DOCKED) 50 ML IVPB SCH ×2 (01:43→09:36)
[2017-03-15 07:48] LABS: BASOPHIL 0.7 % (0-2.0); EOSINOPHIL 4.7 % (0-4.5); MCH 31.9 pg (25.7-33.7); MCHC 34.7 g/dl (32.0-36.0); MEAN CELL VOLUME 91.9 fl (80-96); MEAN PLT VOLUME 8.7 fl (7.5-11.1); NEUTROPHILS 58.5 % (42.8-82.8); PLATELET COUNT 236 K/MM3 (134-434); RDW 12.6 % (11.6-15.6); WHITE BLOOD COUNT 6.8 K/mm3 (4.0-10.0)
[2017-03-15 08:26] LABS: ALBUMIN 2.5 g/dl (3.4-5.0); ANION GAP 9 (8-16); CALCIUM 8.1 mg/dL (8.5-10.1); CO2 26 mmol/L (21-32); GLUCOSE,RANDOM 96 mg/dL (74-106)
[2017-03-15 08:29] LABS: ALK PHOS 114 U/L (45-117); BILIRUBIN,TOTAL 0.4 mg/dL (0.2-1.0); CREATININE 0.7 mg/dL (0.55-1.02); SGOT/AST 27 U/L (15-37); SGPT/ALT 30 U/L (12-78); TOT PROT 5.5 g/dl (6.4-8.2)
--- NOTE | 2017-03-15 09:45 | PN ---
Progress Note (short form) - Note Progress Note: s/p PCN 6/2 for nephrolithiasis Vital Signs Period Temp Pulse Resp BP Sys/Dockery Pulse Ox Last 24 Hr 97.7 F-98.1 F 76-90 17-20 140-142/81-92 96 cor-rrr llungs clear abd soft,nt ext no edema +PCN CBC, BMP 03/15/17 06:20 03/15/17 06:20 Microbiology 03/11/17 15:48 Blood - Peripheral Venous Blood Culture - Preliminary NO GROWTH OBTAINED AFTER 72 HOURS, INCUBATION TO CONTINUE FOR 2 DAYS. 03/11/17 15:49 Urine - Urine Clean Catch Urine Culture - Final Escherichia Coli Enterococcus Faecalis 03/12/17 18:00 Urine - Urine Nephrostomy Tube Urine Culture - Final NO GROWTH OBTAINED 03/11/17 20:00 Blood - Peripheral Venous Blood Culture - Final Escherichia Coli a/p ecoli uti enterococcus/ecoli UTI nephrolithiasis will switch to iv ampicillin urology followup
[2017-03-15] MEDS: AMPICILLIN - 2 GM in SODIUM CHLORIDE 100 ML IVPB SCH ×3 (12:19→20:54)
--- NOTE | 2017-03-15 15:46 | PN ---
Progress Note, Physician Chief Complaint: OOB to chair looks well, afebrile, no pain - Current Medication List Current Medications: Active Medications Acetaminophen (Tylenol -) 325 mg PO Q4H PRN PRN Reason: FEVER OR PAIN Last Admin: 03/14/17 09:01 Dose: 325 mg Acetaminophen (Tylenol -) 650 mg PO Q4H PRN PRN Reason: FEVER OR PAIN Ampicillin Sodium 2 gm/ Sodium (Chloride) 100 mls @ 200 mls/hr IVPB Q6H-IV JOSE Last Admin: 03/15/17 12:19 Dose: 200 mls/hr Oxycodone HCl (Roxicodone -) 5 mg PO Q4H PRN Last Admin: 03/14/17 09:00 Dose: 5 mg - Objective Vital Signs: Vital Signs Temperature 97.5 F L 03/15/17 13:52 Pulse Rate 83 03/15/17 13:52 Respiratory Rate 20 03/15/17 10:00 Blood Pressure 148/73 03/15/17 13:52 O2 Sat by Pulse Oximetry (%) 96 03/14/17 21:00 Constitutional: Yes: No Distress, Calm Eyes: Yes: Conjunctiva Clear HENT: Yes: Atraumatic Neck: Yes: Supple Cardiovascular: Yes: Regular Rate and Rhythm Respiratory: Yes: CTA Bilaterally Gastrointestinal: Yes: Soft. No: Distention, Tenderness Musculoskeletal: No: Joint Stiffness, Joint Swelling Extremities: No: Cold, Cool Edema: No Integumentary: No: Rash, Venous Stasis Changes Neurological: Yes: WNL, Alert, Oriented ...Motor Strength: WNL Psychiatric: Yes: WNL, Alert, Oriented. No: Agitated Labs: CBC, BMP 03/15/17 06:20 03/15/17 06:20 INR, PTT INR 1.02 (0.82-1.09) 03/11/17 15:49 - ....Imaging Other: Report Reviewed Assessment/Plan The patient is a 72-year-old woman, accompanied by her daughter, with a significant past medical history of hypertension and urinary tract infection who was advised to present to the emergency department to rule out possible urosepsis. admitted with dx UTI and sepsis and renal stone / hydronephrosis s/p IV ATB, s/p R nephrostomy tube - better and ID f/u f/u labs DVT & falls PFX d/w pt and family and staff
[2017-03-15] MEDS ORDERED: PT OWN MED DRAWER 7, Y5N ONE (20:52)
[2017-03-15] MEDS: HEPARIN NA (PORCINE) 5,000 UNITS/ML 1ML VIAL SQ SCH (21:04)
[2017-03-16] MEDS: AMPICILLIN - 2 GM in SODIUM CHLORIDE 100 ML IVPB SCH ×4 (02:19→21:09)
[2017-03-16] MEDS: ACETAMINOPHEN 325 MG TABLET (FP) PO PRN ×2 (06:05→21:13)
--- NOTE | 2017-03-16 09:10 | PN ---
Progress Note (short form) - Note Progress Note: WBC is normal. Afebrile. Patient without pain. Plan is for ureteroscopic laser litho and stent placement on March 24 antibiotcs therapy as per ID
--- NOTE | 2017-03-16 09:32 | PN ---
Progress Note, Physician Chief Complaint: OOB to chair afebrile - Current Medication List Current Medications: Active Medications Acetaminophen (Tylenol -) 325 mg PO Q4H PRN PRN Reason: FEVER OR PAIN Last Admin: 03/14/17 09:01 Dose: 325 mg Acetaminophen (Tylenol -) 650 mg PO Q4H PRN PRN Reason: FEVER OR PAIN Last Admin: 03/16/17 06:05 Dose: 650 mg Heparin Sodium (Porcine) (Heparin -) 5,000 unit SQ BID JOSE Last Admin: 03/15/17 21:04 Dose: 5,000 unit Ampicillin Sodium 2 gm/ Sodium (Chloride) 100 mls @ 200 mls/hr IVPB Q6H-IV JOSE Last Admin: 03/16/17 02:19 Dose: 200 mls/hr Oxycodone HCl (Roxicodone -) 5 mg PO Q4H PRN Last Admin: 03/14/17 09:00 Dose: 5 mg - Objective Vital Signs: Vital Signs Temperature 98.2 F 03/16/17 09:19 Pulse Rate 75 03/16/17 09:19 Respiratory Rate 20 03/16/17 09:19 Blood Pressure 150/71 03/16/17 09:19 O2 Sat by Pulse Oximetry (%) 96 03/15/17 21:00 Constitutional: Yes: No Distress Eyes: Yes: Conjunctiva Clear HENT: Yes: Atraumatic Neck: Yes: Supple Cardiovascular: Yes: Regular Rate and Rhythm Respiratory: Yes: CTA Bilaterally Gastrointestinal: Yes: Soft. No: Distention Genitourinary: No: CVA Tenderness - Left, CVA Tenderness - Right Musculoskeletal: No: Joint Stiffness, Joint Swelling Extremities: No: Cold, Cool Edema: No Integumentary: No: Rash, Venous Stasis Changes Neurological: Yes: WNL, Alert, Oriented ...Motor Strength: WNL Psychiatric: Yes: WNL, Alert, Oriented. No: Agitated Labs: CBC, BMP 03/15/17 06:20 03/15/17 06:20 INR, PTT INR 1.02 (0.82-1.09) 03/11/17 15:49 - ....Imaging Other: Report Reviewed Assessment/Plan The patient is a 72-year-old woman, accompanied by her daughter, with a significant past medical history of hypertension and urinary tract infection who was advised to present to the emergency department to rule out possible urosepsis. admitted with dx UTI and sepsis and renal stone / hydronephrosis s/p IV ATB, s/p R nephrostomy tube - better and ID f/u f/u labs DVT & falls PFX d/w pt and family and staff
[2017-03-16] MEDS: HEPARIN NA (PORCINE) 5,000 UNITS/ML 1ML VIAL SQ SCH ×2 (10:23→21:09)
--- NOTE | 2017-03-16 14:26 | PN ---
Progress Note, Physician History of Present Illness: OOB in chair No c/o flank pain No dysuria/ hematuria No c/o fever/ chills Afebrile WBC WNL - Current Medication List Current Medications: Active Medications Acetaminophen (Tylenol -) 325 mg PO Q4H PRN PRN Reason: FEVER OR PAIN Last Admin: 03/14/17 09:01 Dose: 325 mg Acetaminophen (Tylenol -) 650 mg PO Q4H PRN PRN Reason: FEVER OR PAIN Last Admin: 03/16/17 06:05 Dose: 650 mg Heparin Sodium (Porcine) (Heparin -) 5,000 unit SQ BID JOSE Last Admin: 03/16/17 10:23 Dose: 5,000 unit Ampicillin Sodium 2 gm/ Sodium (Chloride) 100 mls @ 200 mls/hr IVPB Q6H-IV JOSE Last Admin: 03/16/17 10:23 Dose: 200 mls/hr Oxycodone HCl (Roxicodone -) 5 mg PO Q4H PRN Last Admin: 03/14/17 09:00 Dose: 5 mg - Objective Vital Signs: Vital Signs Temperature 97.9 F 03/16/17 13:36 Pulse Rate 81 03/16/17 13:36 Respiratory Rate 20 03/16/17 09:19 Blood Pressure 146/87 03/16/17 13:36 O2 Sat by Pulse Oximetry (%) 96 03/15/17 21:00 Constitutional: Yes: No Distress, Obese Eyes: Yes: Conjunctiva Clear Cardiovascular: Yes: Regular Rate and Rhythm, S1, S2 Respiratory: Yes: CTA Bilaterally Gastrointestinal: Yes: Normal Bowel Sounds, Soft. No: Tenderness Genitourinary: No: CVA Tenderness - Left, CVA Tenderness - Right, Other (R PCN in place + tea-colored urine) Labs: CBC, BMP 03/15/17 06:20 03/15/17 06:20 INR, PTT INR 1.02 (0.82-1.09) 03/11/17 15:49 Assessment/Plan Gram Negative bacteremia/ sepsis secondary to UTI- E coli Nephrolithiasis/ obstructive uropathy s/p PCN Pyelonephritis Fever/ leukocytosis-resolved Day # 6 IV antibiotic Anticipate switch to po antibiotics next 24h Mgt of stone/ PCN per /IR
[2017-03-16] MEDS: oxyCODONE HCL 5 MG TABLET PO PRN (21:18)
[2017-03-17] MEDS: AMPICILLIN - 2 GM in SODIUM CHLORIDE 100 ML IVPB SCH ×2 (02:15→10:11)
[2017-03-17] MEDS: ACETAMINOPHEN 325 MG TABLET (FP) PO PRN ×2 (05:58→20:30)
[2017-03-17] MEDS ORDERED: PT OWN MED DRAWER 7, Y5N ONE (09:59)
[2017-03-17] MEDS: HEPARIN NA (PORCINE) 5,000 UNITS/ML 1ML VIAL SQ SCH ×2 (10:11→21:08)
--- NOTE | 2017-03-17 10:26 | PN ---
Progress Note, Physician Chief Complaint: OOB to chair, ambulates NL; occasional R flank pain but feels better BP 155/94 will restart INderal LA - Current Medication List Current Medications: Active Medications Acetaminophen (Tylenol -) 325 mg PO Q4H PRN PRN Reason: FEVER OR PAIN Last Admin: 03/16/17 21:13 Dose: 325 mg Acetaminophen (Tylenol -) 650 mg PO Q4H PRN PRN Reason: FEVER OR PAIN Last Admin: 03/17/17 05:58 Dose: 650 mg Heparin Sodium (Porcine) (Heparin -) 5,000 unit SQ BID JOSE Last Admin: 03/17/17 10:11 Dose: 5,000 unit Ampicillin Sodium 2 gm/ Sodium (Chloride) 100 mls @ 200 mls/hr IVPB Q6H-IV JOSE Last Admin: 03/17/17 10:11 Dose: 200 mls/hr Oxycodone HCl (Roxicodone -) 5 mg PO Q4H PRN Last Admin: 03/16/17 21:18 Dose: 5 mg Propranolol HCl (Inderal La -) [address] [facility] - Objective Vital Signs: Vital Signs Temperature 97.9 F 03/17/17 10:09 Pulse Rate 92 H 03/17/17 10:09 Respiratory Rate 20 03/17/17 10:09 Blood Pressure 155/94 03/17/17 10:09 O2 Sat by Pulse Oximetry (%) 97 03/16/17 20:31 Constitutional: Yes: No Distress, Calm Eyes: Yes: Conjunctiva Clear HENT: Yes: Atraumatic Neck: Yes: Supple Cardiovascular: Yes: Regular Rate and Rhythm Respiratory: Yes: CTA Bilaterally Gastrointestinal: Yes: Soft. No: Distention, Tenderness Genitourinary: No: CVA Tenderness - Left, CVA Tenderness - Right, Hematuria Musculoskeletal: No: Joint Stiffness, Joint Swelling Extremities: No: Cold, Cool, Cyanosis Edema: No Peripheral Pulses WNL: Yes Integumentary: No: Pressure Ulcer, Rash, Venous Stasis Changes Neurological: Yes: WNL, Alert, Oriented ...Motor Strength: WNL Psychiatric: Yes: WNL, Alert, Oriented. No: Agitated, Suicidal Ideation Labs: CBC, BMP 03/15/17 06:20 03/15/17 06:20 INR, PTT INR 1.02 (0.82-1.09) 03/11/17 15:49 - ....Imaging Other: Report Reviewed Assessment/Plan The patient is a 72-year-old woman, accompanied by her daughter, with a significant past medical history of hypertension and urinary tract infections admitted with dx UTI and sepsis and renal stone / hydronephrosis s/p IV ATB, s/p R nephrostomy tube - better and ID f/u f/u labs DVT & falls PFX possible DC home if switched to po ATB per ID; will need home VNS d/w CM to have nephrostomy tube and stone removed on 03/24 per as outpt d/w pt and family and staff
--- NOTE | 2017-03-17 12:15 | PN ---
Progress Note, Physician History of Present Illness: OOB in chair No c/o suprapubic or flank pain No fever/ chills WBC WNL - Current Medication List Current Medications: Active Medications Acetaminophen (Tylenol -) 325 mg PO Q4H PRN PRN Reason: FEVER OR PAIN Last Admin: 03/16/17 21:13 Dose: 325 mg Acetaminophen (Tylenol -) 650 mg PO Q4H PRN PRN Reason: FEVER OR PAIN Last Admin: 03/17/17 05:58 Dose: 650 mg Heparin Sodium (Porcine) (Heparin -) 5,000 unit SQ BID JOSE Last Admin: 03/17/17 10:11 Dose: 5,000 unit Ampicillin Sodium 2 gm/ Sodium (Chloride) 100 mls @ 200 mls/hr IVPB Q6H-IV JOSE Last Admin: 03/17/17 10:11 Dose: 200 mls/hr Oxycodone HCl (Roxicodone -) 5 mg PO Q4H PRN Last Admin: 03/16/17 21:18 Dose: 5 mg Propranolol HCl (Inderal La -) 80 mg PO DAILY [facility] - Objective Vital Signs: Vital Signs Temperature 97.9 F 03/17/17 10:09 Pulse Rate 92 H 03/17/17 10:09 Respiratory Rate 20 03/17/17 10:09 Blood Pressure 155/94 03/17/17 10:09 O2 Sat by Pulse Oximetry (%) 97 03/17/17 09:00 Constitutional: Yes: No Distress Eyes: Yes: Conjunctiva Clear Cardiovascular: Yes: Regular Rate and Rhythm, S1, S2 Respiratory: Yes: CTA Bilaterally Gastrointestinal: Yes: Normal Bowel Sounds, Soft. No: Tenderness Genitourinary: Yes: Other (R PCN in place). No: CVA Tenderness - Left, CVA Tenderness - Right Edema: Yes Labs: CBC, BMP 03/15/17 06:20 03/15/17 06:20 INR, PTT INR 1.02 (0.82-1.09) 03/11/17 15:49 Assessment/Plan Gram Negative bacteremia/ sepsis secondary to UTI- E coli Nephrolithiasis/ obstructive uropathy s/p PCN Pyelonephritis Fever/ leukocytosis-resolved Day # 7 IV antibiotic switch to po levaquin 500mg qd x 7d Mgt of stone/ PCN per /IR
[2017-03-17] MEDS: LEVOFLOXACIN 500 MG TABLET (FP) PO SCH (13:25)
[2017-03-18] MEDS: ACETAMINOPHEN 325 MG TABLET (FP) PO PRN (01:54)
[2017-03-18 07:03] LABS: MCH 31.4 pg (25.7-33.7); MCHC 34.1 g/dl (32.0-36.0); MEAN PLT VOLUME 8.3 fl (7.5-11.1); PLATELET COUNT 310 K/MM3 (134-434); RDW 12.7 % (11.6-15.6); WHITE BLOOD COUNT 9.6 K/mm3 (4.0-10.0)
[2017-03-18] MEDS ORDERED: PT OWN MED DRAWER 7, Y5N ONE (09:01)
[2017-03-18] MEDS: LEVOFLOXACIN 500 MG TABLET (FP) PO SCH (09:03)
[2017-03-18] MEDS: HEPARIN NA (PORCINE) 5,000 UNITS/ML 1ML VIAL SQ SCH (09:03)
[2017-03-18 09:05] VITALS: BP 151/64; PULSE 76; TEMP 98.4
--- NOTE | 2017-03-18 10:20 | DS ---
Physical Examination Vital Signs: Vital Signs Temperature 98.4 F 03/18/17 09:05 Pulse Rate 76 03/18/17 09:05 Respiratory Rate 18 03/18/17 09:05 Blood Pressure 151/64 03/18/17 09:05 O2 Sat by Pulse Oximetry (%) 98 03/17/17 20:19 Findings/Remarks: OOB to chair feels well no c/o afebrile VSS, ready to go home Constitutional: Yes: No Distress, Calm Eyes: Yes: Conjunctiva Clear HENT: Yes: Atraumatic Neck: Yes: Supple Cardiovascular: Yes: Regular Rate and Rhythm Respiratory: Yes: CTA Bilaterally Gastrointestinal: Yes: Soft Renal/: No: CVA Tenderness - Left, CVA Tenderness - Right Musculoskeletal: No: Joint Stiffness, Joint Swelling Extremities: No: Cold, Cool Edema: No Integumentary: No: Rash, Venous Stasis Changes Neurological: Yes: WNL, Alert, Oriented ...Motor Strength: WNL Psychiatric: Yes: WNL, Alert, Oriented. No: Agitated, Suicidal Ideation Labs: CBC, BMP 03/18/17 05:55 03/15/17 06:20 Discharge Summary Reason For Visit: SEPSIS IN URINE Current Active Problems Pyelonephritis (Acute) Sepsis (Acute) Procedures: Principal: admitted with UTI and sepsis Other Procedures: IV ATB per ID; dr Zheng; nephrostomy tube per IR Hospital Course: UCX and blood cx + improved with above; to take po ATB per ID; remove tube per see DC instructions Condition: Improved - Instructions Diet, Activity, Other Instructions: f/u PCP and in 1-2 weeks RTER if recurrent fever/chills or cloudy urine/hematuria falls PFX hold oxycodone for sedation or lethargy; stools softeners while on oxycodone home VNS STONE & NEPHROSTOMY TUBE REMOVAL ON 03/24 WITH ELANA Zheng Referrals: Lily Blas [Primary Care Provider] - Marcell Zheng MD [Staff Physician] - Disposition: VNS/HOME HEALTH CARE - Home Medications Comprehensive Discharge Medication List: Ambulatory Orders Calcium (Oyster Shell) [Os-Mohinder 500MG -] 500 mg PO DAILY 03/11/17 Cholecalciferol (Vitamin D3) [D3-2000] 1,000 unit PO DAILY 03/11/17 Multivitamin [Poly-Vitamin] 1 each PO DAILY 03/11/17 [place]-3S/Dha/Epa/Fish Oil/D3 [Fish Oil Gummies] 1 each PO DAILY 03/11/17 Propranolol HCl [Inderal LA] 80 mg PO DAILY 03/11/17 Psyllium [Metamucil (Sugar-Free) -] 5.85 gm PO DAILY 03/11/17 Acetaminophen [Tylenol .Regular Strength -] 325 mg PO Q4H PRN #0 tablet Oxycodone HCl [Roxicodone -] 5 mg PO Q8H PRN #30 tablet MDD 15 03/17/17 Levofloxacin [Levaquin -] 500 mg PO DAILY #10 tablet 03/18/17
== END 2017-03-18 13:06 | disposition home health service (06) | DRG 872 ==
LOC: JER 14:52 → JERBED 15:57 → J6S 17:37
PROVIDERS: ADMIT Internal Medicine; ATTEND Internal Medicine
PROC: 0T9330Z Drainage of Right Kidney Pelvis with Drainage Device, Percutaneous Approach (ICD-10-PCS; principal; 2017-03-12)
PROC: BT11YZZ Fluoroscopy of Right Kidney using Other Contrast (ICD-10-PCS; 2017-03-12)
DX: A41.9 Sepsis, unspecified organism (principal); N10 Acute pyelonephritis; N13.2 Hydronephrosis with renal and ureteral calculous obstruction; B96.20 Unspecified Escherichia coli [E. coli] as the cause of diseases classified elsewhere; D72.829 Elevated white blood cell count, unspecified; N13.9 Obstructive and reflux uropathy, unspecified; I10 Essential (primary) hypertension
CPT/HCPCS: 36415; 50432; 71010-TC; 74176-TC; 80053; 81003; 81015; 82550; 83605; 84484; 85025; 85610; 85730; 87040; 87086; 87186; 93005; 93010; 99283-25; A4358; C1729; J1644

== ENCOUNTER 2017-03-25 10:25 | Day surgery (SDC) | payer OTHER ==
[2017-03-22 12:22] VITALS: BMI 37.8
[2017-03-25] MEDS ORDERED: MIDAZOLAM HCL 2 MG/2 ML SINGLE DOSE VIAL ONE (13:11)
--- NOTE | 2017-03-25 13:12 | HP ---
History & Physical Update - History History: No Change - Physical Physical: No Change - Assessment Assessment: No Change - Plan Plan: No Change
[2017-03-25] MEDS ORDERED: IBUPROFEN 800 MG/8 ML IJ IVPB PRN (13:16)
[2017-03-25] MEDS ORDERED: ACETAMINOPHEN 1000 MG/100 ML VIAL (NON FORMULARY) IVPB ONE ×2 (13:17→14:18)
[2017-03-25] MEDS ORDERED: DEXTROSE 5%-0.45% SALINE 1,000 ML IV SCH (13:30)
[2017-03-25] MEDS ORDERED: ceFAZolin SODIUM 1 GM VIAL IVPB ONE (13:32)
[2017-03-25] MEDS ORDERED: ePHEDrine SULFATE 50 MG/1 ML AMPULE ONE (13:49)
--- NOTE | 2017-03-25 14:09 | OP ---
Operative Note - Note: Operative Date: 03/25/17 Pre-Operative Diagnosis: right ureteral calculus Operation: right ULL, stent. PCN removal Post-Operative Diagnosis: Same as Pre-op Surgeon: Marcell Zheng
[2017-03-25] MEDS ORDERED: LACTATED RINGERS SOLUTION 1,000 ML IV SCH (14:30)
--- NOTE | 2017-03-25 14:30 | OP ---
DATE OF OPERATION: 03/25/2017 PREOPERATIVE DIAGNOSIS: Right proximal ureteral calculus. POSTOPERATIVE DIAGNOSIS: Right proximal ureteral calculus. PROCEDURE: Cystoscopy, right ureteroscopic laser lithotripsy, right ureteral stent placement, and removal of right nephrostomy tube. ANESTHESIA: General. SURGEON: Marcell Zheng MD ESTIMATED BLOOD LOSS: Minimal. FINDING: An obstructing stone in the proximal right ureter. DRAINS: A 24 x 6 double-J ureteral stent on the right side. PREOPERATIVE INDICATIONS: The patient is a 72-year-old female who a few weeks ago was admitted with septic obstructing stone. A nephrostomy tube was placed at the time. She was treated for 2 weeks with antibiotics and now comes to the OR for removal of stone. OPERATION: The patient was brought to the OR, placed on the table in the supine position, given general anesthesia, and placed in the modified lithotomy position. The groins were prepped and draped sterilely. Cystoscopy was performed. The bladder appeared to be unremarkable. No tumors or stones were seen. The urethra was normal, and both UOs were seen. A wire was passed up into the right kidney with fluoroscopic guidance. A ureteral access sheath was slowly and very easily passed over the wire under fluoroscopic guidance up to the upper ureter. The inner sheath was removed. The wire remained. The flexible ureteroscope was passed to the area of the stone which was visualized. Stone was broken up with the holmium laser fiber. The kidney was then examined. No further large stone fragments were seen. The sheath was removed. The ureter was inspected. There were no other stones and no injury to the ureter. Over the remaining wire, a 6 x 24 double-J ureteral stent was placed under fluoroscopic guidance, 1 loop in the kidney and 1 loop in the bladder. At this point, the nephrostomy tube was then removed under fluoroscopic guidance as well. The stent remained in place. Patient was woken up. Kristen [id number]
[2017-03-25] MEDS ORDERED: ACETAMINOPHEN INJECTION 100 ML IVPB ONE (14:55)
[2017-03-25 15:17] VITALS: TEMP 97.6
[2017-03-25 16:40] VITALS: BP 130/80; PULSE 70
== END 2017-03-25 16:41 | disposition home or self-care (01) ==
LOC: JASU-SURG 10:25
PROVIDERS: ATTEND Urology
PROC: 0TF68ZZ Fragmentation in Right Ureter, Via Natural or Artificial Opening Endoscopic (ICD-10-PCS; principal; 2017-03-25 13:30)
PROC: 0T768DZ Dilation of Right Ureter with Intraluminal Device, Via Natural or Artificial Opening Endoscopic (ICD-10-PCS; 2017-03-25 13:30)
PROC: 2W53XYZ Removal of Other Device on Abdominal Wall (ICD-10-PCS; 2017-03-25 13:30)
DX: N21.1 Calculus in urethra (principal)
CPT/HCPCS: 76000-TC; 94760